=== PATIENT | male | born 1995 | race Caucasian/White ===

== ENCOUNTER → 2019-02-02 | Outpatient (CLI) | payer OTHER ==
--- NOTE | 2019-02-02 14:10 | RADIOLOGY IMAGING REPORT ---
FACILITY: [facility] PATIENT NAME: Chaim Sorenson : 1995 MR: [id number] V: [id number] EXAM DATE: ORDERING PHYSICIAN: SATHISH KNOWLES TECHNOLOGIST: Location: Patient: Chaim Sorenson : 1995 Visit/Account:[id number] Date of Sevice: 02/02/2019 US VENOUS LOWER EXT RT HISTORY: Right calf pain after surgery COMPARISON: None. FINDINGS: Grayscale, duplex and color Doppler interrogation of the right lower extremity deep veins from common femoral vein to proximal calf was completed. The greater saphenous vein in the proximal thigh was ev aluated using similar technique. Common femoral vein - Negative. Femoral vein - Negative. Deep femoral vein - Negative. Popliteal vein - Negative. Visualized deep calf veins - Negative. Popliteal fossa: Negative. Greater saphenous vein in the proximal thigh: Negative. Within the subcutaneous tissues tissues of the [place] calf, there is a well-circumscribed heterogeneo us fluid collection consistent with hematoma measuring 10.4 x 2.3 x 4.9 cm. IMPRESSION: Large posterior calf hematoma No evidence of DVT Report Dictated By: Evert Enriquez at 02/02/2019 2:05 PM Report E-Signed By: Evert Enriquez at 02/02/2019 2:06 PM WSN:[email or web address]
== END ==
LOC: US 12:37
PROVIDERS: ATTEND Orthopaedic Surgery
DX: M79.81 Nontraumatic hematoma of soft tissue (principal)